=== PATIENT | female | born 1990 | race African-American/Black ===

== ENCOUNTER 2018-09-01 00:49 | Emergency (ER) | payer OTHER ==
[2018-09-01] MEDS ORDERED: IBUPROFEN 600 MG TABLET (FP) PO ONE ×2 (01:47→02:03)
[2018-09-01] MEDS ORDERED: CEPHALEXIN MONOHYDRATE 500 MG CAPSULE (UD) PO ONE (01:59)
[2018-09-01] MEDS ORDERED: CEFAZOLIN 1 GM/D5W 1 GM/50 ML BAG IVPB ONE (02:02)
[2018-09-01] MEDS ORDERED: BACITRACIN 0.9 GM PACKET ONE (02:06)
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
[2018-09-01] MEDS ORDERED: CEFAZOLIN 1 GM/D5W 1 GM/50 ML BAG ONE ×2 (02:17→02:25)
[2018-09-01 02:33] LABS: BASO % 1.1 % (0-2.0); EOS % 3.4 % (0-4.5); HEMATOCRIT 36.8 % (32.4-45.2); HEMOGLOBIN 12.1 GM/dL (10.7-15.3); LYMPH % 33.2 % (8-40); MCH 29.6 pg (25.7-33.7); MCHC 32.8 g/dl (32.0-36.0); MEAN CELL VOLUME 90.1 fl (80-96); MEAN PLT VOLUME 8.7 fl (7.5-11.1); MONO % 8.4 % (3.8-10.2); NEUT % 53.9 % (42.8-82.8); PLATELET COUNT 379 K/MM3 (134-434); RBC 4.09 M/mm3 (3.60-5.2); RDW 14.8 % (11.6-15.6)
[2018-09-01 02:34] VITALS: BP 111/75; PULSE 89; TEMP 98; BMI 47.3
[2018-09-01 04:58] LABS: ERYTHROCYTE SEDIMENTATION RATE 7 mm/hr (0-20)
== END 2018-09-01 03:13 | disposition home or self-care (01) ==
LOC: JER 00:49
DX: S51.012A Laceration without foreign body of left elbow, initial encounter (principal); V19.88XA Pedal cyclist (driver) (passenger) injured in other specified transport accidents, initial encounter; Y92.488 Other paved roadways as the place of occurrence of the external cause; Y93.55 Activity, bike riding; Y99.8 Other external cause status
CPT/HCPCS: 36415; 73070-TC-LT-FY; 85025; 85651; 86140; 96365; 99282-25

== ENCOUNTER 2018-09-02 19:44 | Emergency (ER) | payer OTHER ==
[2018-09-02 20:08] VITALS: BP 119/63; PULSE 69; TEMP 98.2; BMI 29.2
--- NOTE | 2018-09-02 20:26 | PDOC ---
History of Present Illness - General Chief Complaint: Wound Stated Complaint: WOUND CHECK Time Seen by Provider: 09/02/18 20:14 - History of Present Illness Initial Comments: 09/02/18 20:25 28-year-old female presents for wound check of left elbow. She's been using the bacitracin and taking the Keflex as directed she has no other symptoms aside localized pain to the left elbow Past History - Past Medical History Allergies/Adverse Reactions: Allergies Allergy/AdvReac Type Severity Reaction Status Date / Time No Known Allergies Allergy Verified 09/01/18 02:34 Home Medications: Ambulatory Orders Cephalexin [Keflex] 500 mg PO TID #30 capsule 09/01/18 COPD: No - Immunization History Immunization Up to Date: Yes - Suicide/Smoking/Psychosocial Hx Smoking Status: No Smoking History: Never smoked Have you smoked in the past 12 months: No Number of Cigarettes Smoked Daily: 0 Hx Alcohol Use: No Drug/Substance Use Hx: No Substance Use Type: None Review of Systems - Review of Systems Integumentary: Yes: See HPI, Lesions *Physical Exam - Vital Signs Last Vital Signs Temp Pulse Resp BP Pulse Ox 98.2 F 69 20 119/63 100 09/02/18 20:05 09/02/18 20:05 09/02/18 20:05 09/02/18 20:05 09/02/18 20:05 - Physical Exam Comments: 09/02/18 20:27 There is a large gaping abrasion on the posterior aspect left elbow with normal surrounding skin color and temperature. The abrasion is filled with white crusty material. An an antibiotic ointment. Gross sensorimotor deficits in the left upper extremity Medical Decision Making - Medical Decision Making 09/02/18 20:28 I had the patient wash the wound with soap and water. I applied a wet-to-dry dressing instructed her on dressing changes twice a day and follow-up for a wound check in 3 days were I will be here and be able to visualize the wound. *DC/Admit/Observation/Transfer Diagnosis at time of Disposition: Elbow wound - Discharge Dispostion Disposition: HOME Condition at time of disposition: Stable Decision to Admit order: No - Referrals Referrals: Obed Mcghee [Primary Care Provider] - Chino Perkins MD [Staff Physician] - - Patient Instructions Additional Instructions: Continue the wet-to-dry dressing changes. In between dressing changes he may wash the wound with soap and water as she did in the ER. Please use and unscented antibacterial soap. Do not apply any ointments. Return to the emergency room in 3 days for wound evaluation. He may also follow-up with general surgery in 1-2 days. Continue the antibiotics as directed except for the ointment - Post Discharge Activity
[2018-09-02] MEDS ORDERED: DIPHTH,PERTUSS(ACELL),TET 0.5 ML DISP.SYRIN IM ONE ×2 (20:27→20:29)
== END 2018-09-02 20:47 | disposition home or self-care (01) ==
LOC: JERFT 19:44
DX: Z09 Encounter for follow-up examination after completed treatment for conditions other than malignant neoplasm (principal)
CPT/HCPCS: 90715; 99281-25

== ENCOUNTER 2018-09-05 17:46 | Emergency (ER) | payer OTHER ==
[2018-09-05 17:56] VITALS: BP 120/84; PULSE 71; TEMP 98.5; BMI 27.4
--- NOTE | 2018-09-05 17:59 | PDOC ---
Rapid Medical Evaluation Time Seen by Provider: 09/05/18 17:53 Medical Evaluation: Allergies Allergy/AdvReac Type Severity Reaction Status Date / Time No Known Allergies Allergy Verified 09/01/18 02:34 09/05/18 17:54 HPI wound check L elbow ROS: No fevers chills or night sweats PE: Wound granulating well L elbow normal surrouinding skin color and temperature MDM: Wound healing, advised to d/c wet/dry dressing changes and keep open to air and wash with antibacterial soap. Impression: L elbow abrasion Discharge Disposition - Diagnosis Elbow wound - Discharge Dispostion Disposition: HOME Condition at time of disposition: Stable Decision to Admit order: No - Referrals Referrals: Chino Perkins MD [Staff Physician] - - Patient Instructions Additional Instructions: Discontinue wet to dry dressing changes, Keep wound clean with antibacterial soap and water 2x's per day and leave the area open to air. Return to the ER for worsening symptoms and follow up with general surgery in 1-2 days for wound check in needed. - Post Discharge Activity
== END 2018-09-05 18:14 | disposition home or self-care (01) ==
LOC: JERFT 17:46
DX: Z09 Encounter for follow-up examination after completed treatment for conditions other than malignant neoplasm (principal)
CPT/HCPCS: 99281-25